=== PATIENT | male | born 1970 | race African-American/Black ===

== ENCOUNTER 2020-10-04 07:07 | Emergency (ER) | payer MEDICARE, OTHER ==
[~2020-10-04] VITALS: Ht 182.9 cm; Wt 73.0 kg
[2020-10-04] MEDS ORDERED: LORAZEPAM 0.5MG TABLET PO ONE (08:00)
[2020-10-04 08:06] VITALS: BP 143/61
[2020-10-04] MEDS ORDERED: LORA-249 PO (09:46)
== END 2020-10-04 10:02 | disposition home or self-care (01) ==
LOC: ER 07:07
DX: F41.9 Anxiety disorder, unspecified (principal); Z85.841 Personal history of malignant neoplasm of brain
CPT/HCPCS: 93005; 99283